=== PATIENT | male | born 2000 | race Hispanic/Latino ===

== ENCOUNTER 2019-04-24 07:16 | Day surgery (SDC) | payer OTHER ==
[2019-04-24] MEDS ORDERED: Ringers Lactate 1,000 ML IV ONE (07:58)
[2019-04-24] MEDS ORDERED: PROPOFOL 200 MG/20 ML VIAL IV ONE ×2 (08:24)
[2019-04-24] MEDS ORDERED: MIDAZOLAM HCL 2 MG/2 ML INJ ONE (08:24)
[2019-04-24] MEDS ORDERED: LIDOCAINE 1% MPF 5 ML VIAL ONE (08:24)
--- NOTE | 2019-04-24 18:46 | OP ---
Surgeon: Santos Whitaker MD Procedure To Be Performed: Colonoscopy. Indication For Procedure: Hematochezia. Plan For Anesthesia: Monitored anesthesia care. Complexity: Average. Technique: After obtaining informed consent from the patient explaining the risks and complications which include, but are not limited to bleeding, infection, perforation, and anesthesia complications, the patient was placed in the left lateral position and sedation was given. A digital rectal exam w as performed. Subsequently, the scope advanced through the rectum and carefully guided up to the ter shana ileum. The quality of prep was good. Germfask prep score 3 + 3 + 3 equal to 9 x 9. Scope withdr awal time was 8 minutes. The cecum was identified by the ileocecal valve and appendiceal orifice. A fter reaching the terminal ileum, the scope was gradually withdrawn while carefully examining the muc ya. After the completion of examination, the scope and equipment were withdrawn and procedure termi nated in a safe manner. Findings: In the distal colon of approximately distal 20 cm, which includes the distal sigmoid and r ectum. Diffuse mucosal erythema with superficial ulceration was seen consistent with ulcerative rect osigmoiditis, appeared to be mild to moderate in severity. Multiple biopsies were taken. The remain joe of the colon from mid sigmoid to cecum appeared normal. Random left and right-sided biopsies wer e taken from the normal-appearing mucosa. The terminal ileum appeared normal. Complications: None. Tolerance To Anesthesia: Excellent. Postoperative Diagnosis: Ulcerative rectosigmoiditis. Plan: 1.Await pathology results. 2.We will start patient on 5-ASA oral and suppositories. Follow up in the GI clinic for results of biopsies and for further management. /RENUKAL Voice ID: [id number] Report ID: [id number]
== END 2019-04-24 09:44 | disposition home or self-care (01) ==
LOC: OR 07:16
PROVIDERS: ATTEND Internal Medicine Gastroenterology
PROC: 0DBN8ZX Excision of Sigmoid Colon, Via Natural or Artificial Opening Endoscopic, Diagnostic (ICD-10-PCS; 2019-04-24)
PROC: 0DBP8ZX Excision of Rectum, Via Natural or Artificial Opening Endoscopic, Diagnostic (ICD-10-PCS; 2019-04-24)
PROC: 0DBF8ZX Excision of Right Large Intestine, Via Natural or Artificial Opening Endoscopic, Diagnostic (ICD-10-PCS; 2019-04-24)
PROC: 0DBG8ZX Excision of Left Large Intestine, Via Natural or Artificial Opening Endoscopic, Diagnostic (ICD-10-PCS; principal; 2019-04-24 09:15)
DX: K52.89 Other specified noninfective gastroenteritis and colitis (principal); K62.89 Other specified diseases of anus and rectum; K63.0 Abscess of intestine; K61.1 Rectal abscess; R56.9 Unspecified convulsions; Z79.899 Other long term (current) drug therapy
CPT/HCPCS: 88305; J2250; J2704

== ENCOUNTER 2019-09-27 07:32 | Day surgery (SDC) | payer OTHER ==
[2019-09-27] MEDS ORDERED: Ringers Lactate 1,000 ML IV ONE (07:54)
[2019-09-27] MEDS ORDERED: MIDAZOLAM HCL 2 MG/2 ML INJ ONE (08:18)
[2019-09-27] MEDS ORDERED: propofoL 200 MG/20 ML VIAL IV ONE (08:18)
[2019-09-27] MEDS ORDERED: LIDOCAINE 1% MPF 5 ML VIAL ONE (08:19)
[2019-09-27 09:30] VITALS: O2SAT 98
[2019-09-27 13:18] VITALS: BP 118/74; TEMP 97.2
--- NOTE | 2019-09-27 20:36 | OP ---
Surgeon: Santos Whitaker MD Procedure To Be Performed: Colonoscopy. Indications For Procedure: History of UC, also anemia. Plan For Anesthesia: Monitored anesthesia care. Complexity: Average. Technique: After obtaining informed consent from the patient, explaining risks and complications, wh ich include but are not limited to bleeding, infection, perforation, and anesthesia complication, pat ient was placed in the left lateral position and sedation was given. Digital rectal exam was perform ed. Then scope was inserted into the rectum and carefully guided up until the terminal ileum. The c ecum was identified by the appendiceal orifice and ileocecal valve. Then subsequently, the scope gra dually withdrawn while carefully examining the mucosa. The quality of prep was good. Scope withdraw al time was 9 minutes. Findings: From rectum to cecum, no evidence of ulceration seen. However, the mucosa did have a decr eased vascular pattern with some pitted appearance throughout the colon. Segmental biopsies taken fr om different areas of the colon. Retroflexion revealed grade 1 internal hemorrhoids. The terminal i leum was intubated and a single stellate ulcer with surrounding erythema was visualized. Biopsies we re taken from this region as well. Complications: None. Tolerance To Anesthesia: Excellent. Postoperative Diagnosis: Colitis appears to be under remission. However, ulcer seen in the ileum. Plan: 1.Await pathology results. 2.Continue 5-ASA. 3.We will need to review if patient has had capsule endoscopy and small bowel workup and may need th jennifer investigations to actually evaluate for Crohn disease. US/MODL Voice ID: [id number] Report ID: [id number]
== END 2019-09-27 09:45 | disposition home or self-care (01) ==
LOC: OR 07:32
PROVIDERS: ATTEND Internal Medicine Gastroenterology
PROC: 0DBL8ZX Excision of Transverse Colon, Via Natural or Artificial Opening Endoscopic, Diagnostic (ICD-10-PCS; 2019-09-27)
PROC: 0DBN8ZX Excision of Sigmoid Colon, Via Natural or Artificial Opening Endoscopic, Diagnostic (ICD-10-PCS; 2019-09-27)
PROC: 0DBP8ZX Excision of Rectum, Via Natural or Artificial Opening Endoscopic, Diagnostic (ICD-10-PCS; 2019-09-27)
PROC: 0DBB8ZX Excision of Ileum, Via Natural or Artificial Opening Endoscopic, Diagnostic (ICD-10-PCS; 2019-09-27)
PROC: 0DBM8ZX Excision of Descending Colon, Via Natural or Artificial Opening Endoscopic, Diagnostic (ICD-10-PCS; 2019-09-27)
PROC: 0DBK8ZX Excision of Ascending Colon, Via Natural or Artificial Opening Endoscopic, Diagnostic (ICD-10-PCS; principal; 2019-09-27 08:30)
DX: K51.80 Other ulcerative colitis without complications (principal); K63.3 Ulcer of intestine; D64.9 Anemia, unspecified; K64.8 Other hemorrhoids; Z83.3 Family history of diabetes mellitus
CPT/HCPCS: 88305; 45380; J2704; J2250; J7120

== ENCOUNTER 2020-04-21 11:31 | Day surgery (SDC) | payer OTHER ==
[2020-04-21] MEDS ORDERED: Ringers Lactate 1,000 ML IV ONE (11:56)
[2020-04-21] MEDS ORDERED: MIDAZOLAM HCL 2 MG/2 ML INJ ONE (11:59)
[2020-04-21] MEDS ORDERED: propofoL 200 MG/20 ML VIAL IV ONE (11:59)
[2020-04-21] MEDS ORDERED: LIDOCAINE 2% MPF 5 ML VIAL ONE (11:59)
[2020-04-21 13:51] VITALS: TEMP 98.1
[2020-04-21 13:53] VITALS: BP 167/63; O2SAT 100
--- NOTE | 2020-04-30 11:27 | OP ---
Surgeon: Santos Whitaker MD Procedure Performed: Esophagogastroduodenoscopy. Indication For Procedure: Anemia, history of colitis. Plan For Anesthesia: Monitored anesthesia care. Complexity: Average. Technique: After obtaining informed consent from the patient and explaining risks and complications which include but are not limited to bleeding, infection, perforation, and anesthesia complication, t he patient was placed in the left lateral position and sedation was given. From then on, the scope w as advanced into the mouth and carefully guided up till the third portion of the duodenum. After the completion of examination and all diagnostic maneuvers, the scope and equipment were withdrawn and p rocedure terminated in a safe manner. Findings: Esophagus: No gross lesion seen in the entire esophagus. Stomach: Mild patchy erythema seen in the body and antrum. Biopsies taken. Duodenum: No gross abnormality is seen in the examined duodenum. Small bowel biopsies taken to rule out celiac disease. Complications: None. Tolerance To Anesthesia: Excellent. Postoperative Diagnosis: Gastritis. Plan: 1.Await pathology results. 2.Small . 3.Capsule endoscopy. 4.Follow up in the GI Clinic in 1 to 2 weeks. US/MODL Voice ID: [id number] Report ID: [id number]
== END 2020-04-21 13:30 | disposition home or self-care (01) ==
LOC: OR 11:31
PROVIDERS: ATTEND Internal Medicine Gastroenterology
PROC: 0DB68ZX Excision of Stomach, Via Natural or Artificial Opening Endoscopic, Diagnostic (ICD-10-PCS; 2020-04-21)
PROC: 0DB98ZX Excision of Duodenum, Via Natural or Artificial Opening Endoscopic, Diagnostic (ICD-10-PCS; principal; 2020-04-21 12:30)
DX: K29.50 Unspecified chronic gastritis without bleeding (principal); D50.9 Iron deficiency anemia, unspecified; K51.80 Other ulcerative colitis without complications; B96.81 Helicobacter pylori [H. pylori] as the cause of diseases classified elsewhere
CPT/HCPCS: 43239; 88312; 88305; J2704; J2250; J7120

== ENCOUNTER 2021-09-03 07:39 | Day surgery (SDC) | payer OTHER ==
[2021-09-03] MEDS ORDERED: Ringers Lactate 1,000 ML IV ONE (08:18)
[2021-09-03 08:45] VITALS: TEMP 97.7
[2021-09-03] MEDS ORDERED: MIDAZOLAM HCL 2 MG/2 ML INJ ONE (08:58)
[2021-09-03] MEDS ORDERED: propofoL 200 MG/20 ML VIAL IV ONE (08:58)
[2021-09-03] MEDS ORDERED: LIDOCAINE 1% MPF 2 ML AMPULE ONE (08:58)
[2021-09-03 10:18] VITALS: O2SAT 100
[2021-09-03 10:19] VITALS: BP 105/69
--- NOTE | 2021-09-03 11:31 | OP ---
Surgeon: Santos Whitaker MD Procedure Performed: Colonoscopy. Indication For Procedure: Ulcerative colitis evidence. Plan For Anesthesia: Monitored anesthesia care. Complexity: Average. Technique: After obtaining informed consent from the patient and explaining risks and complications, which include, but are not limited to bleeding, infection, perforation, anesthesia complication, the patient was placed in a left lateral position. Sedation was given. Digital rectal exam was perform ed. Endoscope was advanced to the rectum and carefully guided up to the terminal ileum. Subsequentl y, scope gradually withdrawn while carefully examining the mucosa. The cecum was identified by the i leocecal valve and appendiceal orifice. Scope withdrawal time was 10 minutes. The quality of prep w as fair with some areas of inadequate prep. Findings: The terminal ileum appeared normal from the cecum to the mid sigmoid. There was no eviden ce of active colitis, only mild decreased vascularity. Segmental biopsies were taken. However, the distal sigmoid and rectum revealed evidence of erythema with small punctate ulcerations. The total l ength from the anal verge of this inflammation was around 20 cm. Complications: None. Tolerance To Anesthesia: Excellent. Postoperative Diagnosis: Proctitis, distal sigmoid colitis. Plan: 1.Await pathology results. 2.Continue 5-ASA. 3.The patient likely will benefit from mesalamine enemas as well. Follow up in the GI clinic in 2 w bladimir. /KIMBERLY Voice ID: [id number] Report ID: [id number]
== END 2021-09-03 10:25 | disposition home or self-care (01) ==
LOC: OR 07:39
PROVIDERS: ATTEND Internal Medicine Gastroenterology
PROC: 0DBN8ZX Excision of Sigmoid Colon, Via Natural or Artificial Opening Endoscopic, Diagnostic (ICD-10-PCS; 2021-09-03)
PROC: 0DBP8ZX Excision of Rectum, Via Natural or Artificial Opening Endoscopic, Diagnostic (ICD-10-PCS; 2021-09-03)
PROC: 0DBM8ZX Excision of Descending Colon, Via Natural or Artificial Opening Endoscopic, Diagnostic (ICD-10-PCS; 2021-09-03)
PROC: 0DBH8ZX Excision of Cecum, Via Natural or Artificial Opening Endoscopic, Diagnostic (ICD-10-PCS; 2021-09-03)
PROC: 0DBK8ZX Excision of Ascending Colon, Via Natural or Artificial Opening Endoscopic, Diagnostic (ICD-10-PCS; principal; 2021-09-03 08:45)
DX: K51.90 Ulcerative colitis, unspecified, without complications (principal); K92.1 Melena; Z20.822 Contact with and (suspected) exposure to COVID-19
CPT/HCPCS: 88305; 45380; U0003 ×2; J2704; J2250; J7120